=== PATIENT | female | born 1970 | race Caucasian/White ===

== ENCOUNTER 2017-07-17 11:02 | Day surgery (SDC) | payer BC ==
[~2017-07-17] VITALS: Ht 162.6 cm; Wt 71.0 kg
[~2017-07-17 11:02] MED LIST: CETI10TA24 PO; OMEP-110 PO; TAMS0.4C2 PO
[2017-07-17] MEDS ORDERED: FLUORESCEIN SODIUM 500 MG/5 ML ONE (11:09)
[2017-07-17] MEDS ORDERED: BUPIVACAINE/PF 0.25% ONE (11:09)
[2017-07-17] MEDS ORDERED: EPINEPHRINE 1 MG/ML, 1ML ONE (11:09)
[2017-07-17] MEDS ORDERED: SODIUM CHLORIDE 0.9% 0 ML ONE (11:12)
[2017-07-17] MEDS ORDERED: VASOPRESSIN 20 UNIT/ML, 1ML ONE (11:13)
[2017-07-17] MEDS ORDERED: LIDOCAINE 1%, 2ML ONE (11:21)
[2017-07-17 11:23] VITALS: BP 127/92
[2017-07-17] MEDS ORDERED: LACTATED RINGERS 1,000 ML IV SCH (11:23)
[2017-07-17] MEDS ORDERED: FENTANYL PF 100 MCG/2ML ONE ×5 (12:37→16:24)
[2017-07-17] MEDS ORDERED: MIDAZOLAM 1 MG/ML, 2ML ONE (12:38)
[2017-07-17] MEDS ORDERED: PROPOFOL 10 MG/ML, 20ML ONE (12:39)
[2017-07-17] MEDS ORDERED: CEFAZOLIN 1,000 MG ONE ×2 (12:40)
[2017-07-17] MEDS ORDERED: ROCURONIUM 10 MG/ML ONE ×2 (12:40→13:15)
[2017-07-17] MEDS ORDERED: BUPIVACAINE/PF 0.25% INFIL ONE (12:46)
[2017-07-17] MEDS ORDERED: MEPERIDINE/PF 25MG/0.5ML IVPush PRN (13:00)
[2017-07-17] MEDS ORDERED: hydrALAzine 20 MG/ML, 1ML IV PRN (13:00)
[2017-07-17] MEDS ORDERED: ACETAMINOPHEN 325 MG TABLET PO PRN (13:00)
[2017-07-17] MEDS ORDERED: FENTANYL PF 100 MCG/2ML IV PRN (13:00)
[2017-07-17] MEDS ORDERED: morphine SULFATE 10 MG/ML, 1ML IV PRN ×2 (13:00→18:30)
[2017-07-17] MEDS ORDERED: ONDANSETRON 2MG/ML, 2ML IVPush PRN (13:00)
[2017-07-17] MEDS ORDERED: LABETALOL 5MG/ML, 20ML IV PRN (13:00)
[2017-07-17] MEDS ORDERED: PROMETHAZINE 25 MG/ML, 1ML IV PRN (13:00)
[2017-07-17] MEDS ORDERED: ACETAMINOPHEN 500 MG TABLET ONE (13:02)
[2017-07-17] MEDS ORDERED: GABAPENTIN 300 MG CAPSULE ONE (13:02)
[2017-07-17] MEDS ORDERED: PHENAZOPYRIDINE 200 MG TABLET ONE (13:04)
[2017-07-17] MEDS ORDERED: DEXAMETHASONE 4 MG/ML, 1ML ONE ×2 (13:32)
[2017-07-17] MEDS ORDERED: ONDANSETRON 2MG/ML, 2ML ONE (13:32)
[2017-07-17] MEDS ORDERED: GLYCOPYRROLATE 0.4 MG/2 ML, 2ML ONE (15:24)
[2017-07-17] MEDS ORDERED: NEOSTIGMINE 1 MG/ML, 10ML ONE (15:24)
[2017-07-17] MEDS ORDERED: ACETAMINOPHEN 650 MG/20.3 ML UDC ONE (16:23)
[2017-07-17] MEDS ORDERED: ACETAMINOPHEN 325 MG TABLET ONE (16:24)
[2017-07-17] MEDS ORDERED: morphine SULFATE 10 MG/ML, 1ML ONE (16:24)
[2017-07-17] MEDS ORDERED: ACETAMINOPHEN 650 MG SUPP PR PRN (18:30)
[2017-07-17] MEDS ORDERED: ACETAMINOPHEN 500 MG TABLET PO SCH (18:30)
[2017-07-17] MEDS ORDERED: IBUPROFEN 600 MG TABLET PO SCH ×2 (18:30→19:30)
[2017-07-17] MEDS ORDERED: ONDANSETRON 2MG/ML, 2ML IV PRN (18:30)
[2017-07-17] MEDS: LACTATED RINGERS 1,000 ML IV SCH ×2 (19:24→23:04)
[2017-07-17] MEDS ORDERED: ONDANSETRON 4 MG TABLET PO PRN (19:30)
[2017-07-17] MEDS ORDERED: IBUPROFEN 600 MG TABLET PO PRN (19:30)
[2017-07-17] MEDS ORDERED: SODIUM CHLORIDE FLUSH 10ML SYR IVF SCH (21:00)
[2017-07-18] MEDS ORDERED: OMEPRAZOLE 20 MG CAPSULE.DR PO SCH (07:30)
[2017-07-18] MEDS ORDERED: CETIRIZINE 10 MG TABLET PO SCH (09:00)
[2017-07-18] MEDS ORDERED: ESTRADIOL 1 MG TABLET PO SCH (09:00)
[2017-07-20] MEDS ORDERED: IBUPROFEN 600 MG TABLET PO PRN (19:30)
[2017-07-20] MEDS ORDERED: ACETAMINOPHEN 500 MG TABLET PO PRN (19:30)
== END 2017-07-17 23:36 | disposition home or self-care (01) ==
LOC: OR 11:02 → 4NOR 17:26 → OR 23:36
PROVIDERS: ATTEND Obstetrics & Gynecology
DX: N93.9 Abnormal uterine and vaginal bleeding, unspecified (principal); D25.2 Subserosal leiomyoma of uterus; N73.6 Female pelvic peritoneal adhesions (postinfective); N85.2 Hypertrophy of uterus; N95.1 Menopausal and female climacteric states; Z87.410 Personal history of cervical dysplasia; Z91.09 Other allergy status, other than to drugs and biological substances
CPT/HCPCS: 52000; 58571; 88307; J0171; J0690; J1100; J2250; J2270; J2405; J2704; J2710; J3010; J3490; J7120